=== PATIENT | female | born 1965 | race African-American/Black ===

== ENCOUNTER 2016-03-29 15:27 | Emergency (ER) | payer OTHER ==
[2016-03-29] MEDS ORDERED: ASPIRIN PO STA (15:33)
[2016-03-29 15:53] LABS: MANUAL DIFF NEEDED? NO
--- NOTE | 2016-03-29 16:02 | ED EKG INTERP ---
EKG Interpretation - EKG Time of EKG reading by physician:: 15:35 EKG Read and Signed by:: Terence Rosenbaum EKG Interpretation (*Must complete 3 of following elements*): Abnormal (cannot rule out inferior infarct, age undetermined) Rate: 110 Rhythm: sinus tachycardia Comments: lateral infarct, age undetermined; Attestation - Scribe Verification/Attestation Scribe:: Edelmira Ng Acting as Scribe for:: Terence Rosenbaum Scribe documention review:: This chart was documented by a scribe and accurately reflects the service the provider performed and the decisions made by the provider.
[2016-03-29 16:21] LABS: INR 0.95 (0.86-1.15)
[2016-03-29 16:24] LABS: AGAP 10; ALBUMIN 3.8 g/dL (3.5-5.0); ALKALINE PHOSPHATASE 177 U/L (32-104); BUN 12 mg/dL (8-22); CALCIUM 9.3 mg/dL (8.8-10.2); CHLORIDE 102 mmol/L (98-107); CK PROFILE 124 U/L (24-173); COSMO 280; GOT 15 U/L (10-30); GPT 23 U/L (10-36); MAGNESIUM 1.8 mg/dL (1.5-2.7); POTASSIUM 3.7 mmol/L (3.5-5.1); SODIUM 138 mmol/L (136-145); TCO2 27 mmol/L (25-35); TOTAL PROTEIN 7.5 g/dL (6.3-8.3)
--- NOTE | 2016-03-29 16:37 | PROVIDER DOCUMENTATION ---
HPI-Chest Pain <MikefranciscoBernabe desai - Last Filed: 03/29/16 18:44> - General Source: patient - History of Present Illness-CP Location: reports: other (R side of chest) Chest Pain Radiation: reports: neck, back Quality of Pain: reports: pressure Severity in ED: mild Onset/Duration: this morning Timing: still present, intermittent Context/Activities at Onset: reports: light activity Modifying Factors: improves with: nothing Associated Symptoms: reports: back pain. denies: abdominal pain, dizziness, fever/chills, nausea, shortness of breath, vomiting Nitro Today/Relief: no nitro taken today Aspirin Treatment Today: 81 mg x 4, provided at home Similar Symptoms Previously?: No Recently Seen Here or By Another Healthcare Provider: No <Edelmira Ng - Last Filed: 03/30/16 07:59> - General Chief Complaint: Chest Pain Stated Complaint: CHEST PAIN Time Seen by Provider: 03/29/16 15:48 Allergies/Adverse Reactions: Patient Allergies Allergy/AdvReac Type Severity Reaction Status Date / Time No Known Allergies Allergy Verified 06/20/15 10:23 Home Medications: Aspirin [Aspirin EC] 81 mg PO DAILY 11/25/13 Furosemide 10 mg PO BID PRN 11/25/13 Insulin Aspart [Novolog Flexpen] 11/25/13 Insulin Glargine [Lantus] 60 units SUBQ QHS 11/25/13 Levothyroxine [Synthroid] 0.075 mg PO DAILY 11/25/13 Pregabalin [Lyrica] 200 mg PO BID 11/25/13 Promethazine [Phenergan] 25 mg PO PRN PRN 11/25/13 Ranitidine HCl 300 mg PO DAILY 11/25/13 Morphine Sulfate [Ms Contin] 60 mg PO PRN PRN 06/20/15 Morphine Ir 15 mg PO BID PRN 02/04/16 Sitagliptin Phosphate [Januvia] 25 mg PO DAILY 02/04/16 Hydrocodone/APAP 10 mg/325 mg [[place]-10] 10 mg 02/11/16 - History of Present Illness-CP Nature of Presenting Problem: Pt is 50 y/o F presents to the ED with R side chest pain. Pt states the pain radiates from her chest to her neck and back. 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 Pt states pain started this morning. (Edelmira Ng) Review of Systems - Adult - REVIEW OF SYSTEMS - ADULT Constitutional: denies: chills, fever Eyes: denies: blurred vision, double vision Ears, Nose, Mouth & Throat: denies: ear pain, nose pain, throat pain Cardiovascular: reports: chest pain, irregular heart rate (tachy). denies: heart murmur Respiratory: denies: cough, shortness of breath, wheezing Gastrointestinal: denies: abdominal pain, diarrhea, nausea, vomiting Genitourinary: denies: dysuria, hematuria Musculoskeletal: reports: back pain, neck pain. denies: joint pain Integumentary: denies: hives, itching Neurological: denies: dizziness/vertigo, headache/migraines Psychiatric: reports: no symptoms reported Endocrine: reports: no symptoms reported Hematologic/Lymphatic: reports: no symptoms reported Allergic/Immunologic: reports: no symptoms reported All Other Systems: Reviewed and Negative <Edelmira Ng - Last Filed: 03/30/16 07:59> Past History - Adult - PAST MEDICAL HISTORY-ADULT Review of Records: reports: Nursing Assessment Review, Medications Reviewed, Social history reviewed & non-contributory. Major Childhood Illnesses: reports: denies history Cardiovascular: reports: denies history Respiratory: reports: denies history Gastrointestinal: reports: denies history Obstetrical/Gynecological: reports: denies history Genitourinary: reports: denies history Musculoskeletal: reports: denies history Neurological: reports: other (diabetic neuropathy) Psychiatric: reports: anxiety Endocrine/Immune: reports: Diabetes, thyroid disorder Other Conditions: reports: denies history - PRIOR SURGERIES/PROCEDURES Surgical/Procedure History: reports: reviewed, not pertinent, back/neck - IMMUNIZATION STATUS Childhood Immunizations: See Nurse Assessment Flu Vaccine: See Nurse Assessment - FAMILY HISTORY Family History: reviewed, not pertinent - SOCIAL HISTORY Smoking: denies Substance Use: denies Living Situation: family <Edelmira Ng - Last Filed: 03/30/16 07:59> Physical Exam-General - PHYSICAL EXAM-ADULT Initial Vital Signs Reviewed: Yes - CONSTITUTIONAL General Appearance: appears well, alert, mild distress - EYES Eyes: PERRL/EOMI, pink conjunctivae - HEAD, EARS, NOSE, MOUTH & THROAT HENMT: normocephalic/atraumatic, moist mucous membranes, normal ENT inspection - NECK Neck: non-tender, full range of motion, normal inspection - RESPIRATORY Respiratory: chest non-tender, lungs clear, normal breath sounds, increased rate - CARDIOVASCULAR Cardiovascular: normal peripheral pulses, no edema, tachycardia - GASTROINTESTINAL (ABDOMEN) Abdominal Exam: normal bowel sounds, non tender, soft - LYMPHATIC Lymphatic: no adenopathy - MUSCULOSKELETAL Back Exam: normal inspection, no CVA tenderness, no vertebral tenderness Extremity: normal range of motion, non-tender, normal gait - SKIN Integumentary: normal color, normal turgor, warm/dry - NEUROLOGIC Neurologic: heating and ventilating tender II-XII nml as tested, grossly normal, no motor/sensory deficits - PSYCHIATRIC Psych/Mental Status: normal mood/affect, normal thought content, normal thought process, oriented x 3 <Edelmira Ng - Last Filed: 03/30/16 07:59> Progress <Bernabe Alvarado - Last Filed: 03/29/16 18:44> - XRAY 1 XRAY: Bilateral XRAY Study: Chest Impression: Abnormal (stable mild basilar fibrosis, L greater than R. no acute abnormality.) - CHANGE OF SHIFT REPORT (ED Provider) Report Given and Care Transferred to:: Dr. Montano Time of Transfer: 17:57 Items Pending: Labs, Other (EKG) <Edelmira Ng - Last Filed: 03/30/16 07:59> - PLAN OF CARE/RESULTS Progress/Plan/Lab Results: Laboratory Tests 03/29/16 03/29/16 03/29/16 15:43 15:43 15:43 WBC RBC Hgb Hct MCV MCH MCHC RDW Std Deviation Plt Count MPV Immature Gran % (Auto) Neut % (Auto) Lymph % (Auto) Caroline % (Auto) Eos % (Auto) Baso % (Auto) Immature Gran # (Auto) Neut # (Auto) Lymph # (Auto) Caroline # (Auto) Eos # (Auto) Baso # (Auto) PT INR APTT (Factor Assay) D-Dimer Sodium 138 Potassium 3.7 Chloride 102 Carbon Dioxide 27 Anion Gap 10 BUN 12 Creatinine 0.8 Estimated GFR/1.73 m2 > 60 BUN/Creatinine Ratio 15 Glucose 176 H Calculated Osmolality 280 Calcium 9.3 Magnesium 1.8 Total Bilirubin 0.40 AST 15 ALT 23 Alkaline Phosphatase 177 H Creatine Kinase 124 Troponin T < 0.010 Vls-V-Bikcpduzxts Pept 12 Total Protein 7.5 Albumin 3.8 Globulin 4.0 Albumin/Globulin Ratio 1.0 03/29/16 03/29/16 03/29/16 15:43 15:43 17:50 WBC 7.07 RBC 4.62 Hgb 12.4 Hct 37.5 MCV 81.2 MCH 26.8 L MCHC 33.1 RDW Std Deviation 14.2 Plt Count 217 MPV 11.4 H Immature Gran % (Auto) 0.1 Neut % (Auto) 39.7 L Lymph % (Auto) 51.3 H Caroline % (Auto) 7.6 Eos % (Auto) 1.0 Baso % (Auto) 0.3 Immature Gran # (Auto) 0.01 Neut # (Auto) 2.80 Lymph # (Auto) 3.63 H Caroline # (Auto) 0.54 Eos # (Auto) 0.07 Baso # (Auto) 0.02 PT 13.0 INR 0.95 APTT (Factor Assay) 28.0 D-Dimer 0.31 Sodium Potassium Chloride Carbon Dioxide Anion Gap BUN Creatinine Estimated GFR/1.73 m2 BUN/Creatinine Ratio Glucose Calculated Osmolality Calcium Magnesium Total Bilirubin AST ALT Alkaline Phosphatase Creatine Kinase 116 Troponin T Upm-D-Ezrhcvdpxat Pept Total Protein Albumin Globulin Albumin/Globulin Ratio 03/29/16 17:50 WBC RBC Hgb Hct MCV MCH MCHC RDW Std Deviation Plt Count MPV Immature Gran % (Auto) Neut % (Auto) Lymph % (Auto) Caroline % (Auto) Eos % (Auto) Baso % (Auto) Immature Gran # (Auto) Neut # (Auto) Lymph # (Auto) Caroline # (Auto) Eos # (Auto) Baso # (Auto) PT INR APTT (Factor Assay) D-Dimer Sodium Potassium Chloride Carbon Dioxide Anion Gap BUN Creatinine Estimated GFR/1.73 m2 BUN/Creatinine Ratio Glucose Calculated Osmolality Calcium Magnesium Total Bilirubin AST ALT Alkaline Phosphatase Creatine Kinase Troponin T < 0.010 Uzy-P-Vykmvcecvhg Pept Total Protein Albumin Globulin Albumin/Globulin Ratio Orders Category Date Time Status Cardiac Monitoring DIRECTED Care 03/29/16 15:34 Active Oxygen Therapy- ED Nursing DIRECTED Care 03/29/16 15:34 Active Saline Loc NOW Care 03/29/16 15:34 Active CHEST-2 VIEWS [RAD] Stat Exams 03/29/16 15:34 Draft CBC WITH ELECTRONIC DIFF [HEME] Stat Lab 03/29/16 15:43 Completed CK PROFILE [SP CHEM] Stat Lab 03/29/16 15:43 Completed CK PROFILE [SP CHEM] Stat Lab 03/29/16 17:50 Completed COMPREHENSIVE METABOLIC PANEL [CHEM] Stat Lab 03/29/16 15:43 [address] D-DIMER PL [COAG] Stat Lab 03/29/16 15:43 Completed MAGNESIUM [CHEM] Stat Lab 03/29/16 15:43 Completed PRO B-NATRIURETIC PEPTIDE Stat Lab 03/29/16 15:43 Completed PR[address]IME WITH INR PL [COAG] Stat Lab 03/29/16 15:[address] [COAG] Stat Lab 03/29/16 15:43 Completed TROPONIN T Stat Lab 03/29/16 15:43 Completed TROPONIN T Stat Lab 03/29/16 17:50 Completed Aspirin Med 03/29/16 15:33 Discontinued 325 mg PO STAT STA Lido/Flores Alk/Al&mg Hydrox [G.i. Cocktail] Med 03/29/16 16:46 Discontinued 30 ml PO NOW ONE EKG [EKG] Stat Ther 03/29/16 15:34 Ordered EKG [EKG] Stat Ther 03/29/16 17:21 Ordered Vital Signs Temp Pulse Resp BP Pulse Ox 03/29/16 15:38 98.4 F 109 H 22 152/106 96 No Known Allergies Allergy (Verified 06/20/15 10:23) Aspirin [Aspirin EC] 81 mg PO DAILY 11/25/13 Furosemide 10 mg PO BID PRN 11/25/13 Insulin Aspart [Novolog Flexpen] 11/25/13 Insulin Glargine [Lantus] 60 units SUBQ QHS 11/25/13 Levothyroxine [Synthroid] 0.075 mg PO DAILY 11/25/13 Pregabalin [Lyrica] 200 mg PO BID 11/25/13 Promethazine [Phenergan] 25 mg PO PRN PRN 11/25/13 Ranitidine HCl 300 mg PO DAILY 11/25/13 Methocarbamol [Robaxin-750] 750 mg PO TID PRN PRN #30 tablet 06/20/15 Morphine Sulfate [Ms Contin] 60 mg PO PRN PRN 06/20/15 Naproxen 500 mg PO BID AC #30 tablet 06/20/15 Morphine Ir 15 mg PO BID PRN 02/04/16 Pregabalin [Lyrica] 200 mg PO BID #60 capsule 02/04/16 Sitagliptin Phos/Metformin HCl [Janumet Xr 100-1,000 mg Tablet] 1 each PO QAM # 30 tbmp.24hr 02/04/16 Sitagliptin Phosphate [Januvia] 25 mg PO DAILY 02/04/16 Hydrocodone/APAP 10 mg/325 mg [[place]-10] 10 mg 02/11/16 Laboratory 03/29/16 03/29/16 03/29/16 17:50 17:50 15:43 WBC RBC Hgb Hct MCV MCH MCHC RDW Std Deviation Plt Count MPV Immature Gran % (Auto) Neut % (Auto) Lymph % (Auto) Caroline % (Auto) Eos % (Auto) Baso % (Auto) Immature Gran # (Auto) Neut # (Auto) Lymph # (Auto) Caroline # (Auto) Eos # (Auto) Baso # (Auto) PT 13.0 INR 0.95 APTT (Factor Assay) 28.0 D-Dimer 0.31 Sodium Potassium Chloride Carbon Dioxide Anion Gap BUN Creatinine Estimated GFR/1.73 m2 BUN/Creatinine Ratio Glucose Calculated Osmolality Calcium Magnesium Total Bilirubin AST ALT Alkaline Phosphatase Creatine Kinase 116 Troponin T < 0.010 Yvx-Z-Ycbuapnrvxv Pept Total Protein Albumin Globulin Albumin/Globulin Ratio 03/29/16 03/29/16 03/29/16 15:43 15:43 15:43 WBC 7.07 RBC 4.62 Hgb 12.4 Hct 37.5 MCV 81.2 MCH 26.8 L MCHC 33.1 RDW Std Deviation 14.2 Plt Count 217 MPV 11.4 H Immature Gran % (Auto) 0.1 Neut % (Auto) 39.7 L Lymph % (Auto) 51.3 H Caroline % (Auto) 7.6 Eos % (Auto) 1.0 Baso % (Auto) 0.3 Immature Gran # (Auto) 0.01 Neut # (Auto) 2.80 Lymph # (Auto) 3.63 H Caroline # (Auto) 0.54 Eos # (Auto) 0.07 Baso # (Auto) 0.02 PT INR APTT (Factor Assay) D-Dimer Sodium Potassium Chloride Carbon Dioxide Anion Gap BUN Creatinine Estimated GFR/1.73 m2 BUN/Creatinine Ratio Glucose Calculated Osmolality Calcium Magnesium Total Bilirubin AST ALT Alkaline Phosphatase Creatine Kinase Troponin T < 0.010 Vfd-T-Pamzgxgwzfm Pept 12 Total Protein Albumin Globulin Albumin/Globulin Ratio 03/29/16 15:43 WBC RBC Hgb Hct MCV MCH MCHC RDW Std Deviation Plt Count MPV Immature Gran % (Auto) Neut % (Auto) Lymph % (Auto) Caroline % (Auto) Eos % (Auto) Baso % (Auto) Immature Gran # (Auto) Neut # (Auto) Lymph # (Auto) Caroline # (Auto) Eos # (Auto) Baso # (Auto) PT INR APTT (Factor Assay) D-Dimer Sodium 138 Potassium 3.7 Chloride 102 Carbon Dioxide 27 Anion Gap 10 BUN 12 Creatinine 0.8 Estimated GFR/1.73 m2 > 60 BUN/Creatinine Ratio 15 Glucose 176 H Calculated Osmolality 280 Calcium 9.3 Magnesium 1.8 Total Bilirubin 0.40 AST 15 ALT 23 Alkaline Phosphatase 177 H Creatine Kinase 124 Troponin T Keu-W-Gtlxpyqwbyf Pept Total Protein 7.5 Albumin 3.8 Globulin 4.0 Albumin/Globulin Ratio 1.0 (Bernabe Alvarado) Laboratory Tests 03/29/16 03/29/16 03/29/16 15:43 15:43 15:43 PT INR APTT (Factor Assay) D-Dimer Sodium 138 Potassium 3.7 Chloride 102 Carbon Dioxide 27 Anion Gap 10 BUN 12 Creatinine 0.8 Estimated GFR/1.73 m2 > 60 BUN/Creatinine Ratio 15 Glucose 176 H Calculated Osmolality 280 Calcium 9.3 Magnesium 1.8 Total Bilirubin 0.40 AST 15 ALT 23 Alkaline Phosphatase 177 H Creatine Kinase 124 Troponin T < 0.010 Hyh-T-Dmgfganlnko Pept 12 Total Protein 7.5 Albumin 3.8 Globulin 4.0 Albumin/Globulin Ratio 1.0 03/29/16 15:43 PT 13.0 INR 0.95 APTT (Factor Assay) 28.0 D-Dimer 0.31 Sodium Potassium Chloride Carbon Dioxide Anion Gap BUN Creatinine Estimated GFR/1.73 m2 BUN/Creatinine Ratio Glucose Calculated Osmolality Calcium Magnesium Total Bilirubin AST ALT Alkaline Phosphatase Creatine Kinase Troponin T Xpl-N-Vaaohdjfqyi Pept Total Protein Albumin Globulin Albumin/Globulin Ratio Orders Category Date Time Status Cardiac Monitoring DIRECTED Care 03/29/16 15:34 Active Oxygen Therapy- ED Nursing DIRECTED Care 03/29/16 15:34 Active Saline Loc NOW Care 03/29/16 15:34 Active CHEST-2 VIEWS [RAD] Stat Exams 03/29/16 15:34 Taken CBC WITH ELECTRONIC DIFF [HEME] Stat Lab 03/29/16 15:43 Results CK PROFILE [SP CHEM] Stat Lab 03/29/16 15:43 Completed COMPREHENSIVE METABOLIC PANEL [CHEM] Stat Lab 03/29/16 15:43 Com[address] D-DIMER PL [COAG] Stat Lab 03/29/16 15:43 Completed MAGNESIUM [CHEM] Stat Lab 03/29/16 15:43 Completed PRO B-NATRIURETIC PEPTIDE Stat Lab 03/29/16 15:[address] Com[address]IME WITH INR PL [COAG] Stat Lab 03/29/16 15:[address] [COAG] Stat Lab 03/29/16 15:43 Completed TROPONIN T Stat Lab 03/29/16 15:43 Completed Aspirin Med 03/29/16 15:33 Discontinued 325 mg PO STAT STA Lido/Flores Alk/Al&mg Hydrox [G.i. Cocktail] Med 03/29/16 16:46 Discontinued 30 ml PO NOW ONE EKG [EKG] Stat Ther 03/29/16 15:34 Ordered Vital Signs - 24 hr 03/29/16 15:38 Temperature 98.4 F Pulse Rate 109 H Respiratory 22 Rate Blood Pressure 152/106 O2 Sat by Pulse 96 Oximetry Laboratory Tests 03/29/16 03/29/16 03/29/16 15:43 15:43 15:43 PT INR APTT (Factor Assay) D-Dimer Sodium 138 Potassium 3.7 Chloride 102 Carbon Dioxide 27 Anion Gap 10 BUN 12 Creatinine 0.8 Estimated GFR/1.73 m2 > 60 BUN/Creatinine Ratio 15 Glucose 176 H Calculated Osmolality 280 Calcium 9.3 Magnesium 1.8 Total Bilirubin 0.40 AST 15 ALT 23 Alkaline Phosphatase 177 H Creatine Kinase 124 Troponin T < 0.010 Fgm-C-Fxanaignxqp Pept 12 Total Protein 7.5 Albumin 3.8 Globulin 4.0 Albumin/Globulin Ratio 1.0 03/29/16 15:43 PT 13.0 INR 0.95 APTT (Factor Assay) 28.0 D-Dimer 0.31 Sodium Potassium Chloride Carbon Dioxide Anion Gap BUN Creatinine Estimated GFR/1.73 m2 BUN/Creatinine Ratio Glucose Calculated Osmolality Calcium Magnesium Total Bilirubin AST ALT Alkaline Phosphatase Creatine Kinase Troponin T Khn-J-Ftecmcvwkcv Pept Total Protein Albumin Globulin Albumin/Globulin Ratio Laboratory Tests 03/29/16 03/29/16 03/29/16 15:43 15:43 15:43 WBC RBC Hgb Hct MCV MCH MCHC RDW Std Deviation Plt Count MPV Immature Gran % (Auto) Neut % (Auto) Lymph % (Auto) Caroline % (Auto) Eos % (Auto) Baso % (Auto) Immature Gran # (Auto) Neut # (Auto) Lymph # (Auto) Caroline # (Auto) Eos # (Auto) Baso # (Auto) PT INR APTT (Factor Assay) D-Dimer Sodium 138 Potassium 3.7 Chloride 102 Carbon Dioxide 27 Anion Gap 10 BUN 12 Creatinine 0.8 Estimated GFR/1.73 m2 > 60 BUN/Creatinine Ratio 15 Glucose 176 H Calculated Osmolality 280 Calcium 9.3 Magnesium 1.8 Total Bilirubin 0.40 AST 15 ALT 23 Alkaline Phosphatase 177 H Creatine Kinase 124 Troponin T < 0.010 Jll-F-Lyigwindmpu Pept 12 Total Protein 7.5 Albumin 3.8 Globulin 4.0 Albumin/Globulin Ratio 1.0 03/29/16 03/29/16 15:43 15:43 WBC 7.07 RBC 4.62 Hgb 12.4 Hct 37.5 MCV 81.2 MCH 26.8 L MCHC 33.1 RDW Std Deviation 14.2 Plt Count 217 MPV 11.4 H Immature Gran % (Auto) 0.1 Neut % (Auto) 39.7 L Lymph % (Auto) 51.3 H Caroline % (Auto) 7.6 Eos % (Auto) 1.0 Baso % (Auto) 0.3 Immature Gran # (Auto) 0.01 Neut # (Auto) 2.80 Lymph # (Auto) 3.63 H Caroline # (Auto) 0.54 Eos # (Auto) 0.07 Baso # (Auto) 0.02 PT 13.0 INR 0.95 APTT (Factor Assay) 28.0 D-Dimer 0.31 Sodium Potassium Chloride Carbon Dioxide Anion Gap BUN Creatinine Estimated GFR/1.73 m2 BUN/Creatinine Ratio Glucose Calculated Osmolality Calcium Magnesium Total Bilirubin AST ALT Alkaline Phosphatase Creatine Kinase Troponin T Lfj-Y-Lkrwwjlobzc Pept Total Protein Albumin Globulin Albumin/Globulin Ratio (Edelmira Ng) Departure - Departure Time of Disposition Order: 18:45 Certified Medical Emergency: Emergent <Bernabe Alvarado - Last Filed: 03/29/16 18:44> - Departure Time of Disposition Order: 19:10 <Edelmira Ng - Last Filed: 03/30/16 07:59> - Departure DIAGNOSIS: Non-cardiac chest pain Disposition: HOME 01 Condition: Stable Additional Instructions: ED Follow Up Instructions: You have been treated by a care provider in the Emergency Department. These instructions are being provided to you so you can have an understanding of how to care for yourself upon discharge. Upon discharge from the Emergency Department, you are responsible for making arrangements for follow-up care by a physician of your choice. Take all prescribed medications as directed. Return to the Emergency Department immediately for any new or worsening symptoms. You may call the Physician Referral phone number at [phone] to obtain a list of Physicians who are taking new patients. Prescriptions: Omeprazole [Prilosec] 20 mg PO DAILY #30 capsule Referrals: Lizbeth Hill CRNP [Primary Care Provider] - Forms: Return to School/Parent Work Instructions: Chest Wall Pain, Oovq-np-Bsqv, Omeprazole capsules (sprinkle caps ) - Rx Attestation - Scribe Verification/Attestation Scribe:: Edelmira Ng Acting as Scribe for:: Terence Rosenbaum Scribe documention review:: This chart was documented by a scribe and accurately reflects the service the provider performed and the decisions made by the provider. - Scribe Verification/Attestation #2 Shift Change Time: 17:57 Scribe Name: Bernabe Alvarado Acting as Scribe for:: Johnny Mnotano <Edelmira Ng - Last Filed: 03/30/16 07:59> Physician Attestation
[2016-03-29] MEDS ORDERED: G.I. COCKTAIL PO ONE (16:46)
--- NOTE | 2016-03-29 17:01 | Diag Imaging Result Document ---
PROCEDURE NAME: CHEST-2 VIEWS - 03/29/2016 CHEST, 2 VIEWS: INDICATION: Chest pain. COMPARISON: 06/20/2015. FINDINGS: The cardiomediastinal silhouette is within normal limits. The pulmonary vasculature is not congested. There is slight increased bibasilar lung markings left greater than right are again demonstrated and compatible with fibrosis. No acute abnormalities are appreciated. No effusion or pneumothorax. There are postsurgical changes left shoulder. IMPRESSION: Stable mild basilar fibrosis, left greater than right. No acute abnormality.
[2016-03-29 17:17] LABS: BASO% 0.3 % (0.0-0.8); EOS# 0.07 X1000 (0.0-0.7); HEMATOCRIT 37.5 % (37.0-47.0); HEMOGLOBIN 12.4 g/dL (12.0-16.0); IMM GRAN# 0.01 X1000 (0.0-0.04); IMM GRAN% 0.1 % (0.0-0.5); LYMPH# 3.63 X1000 (1.2-3.4); LYMPH% 51.3 % (20.5-51.1); MCH 26.8 PG (27-31); MCHC 33.1 g/dL (33-37); MCV 81.2 FL (81-99); MONO# 0.54 X1000 (0.11-0.59); MONO% 7.6 % (1.7-9.3); MPV 11.4 FL (7.4-10.4); NEUT% 39.7 % (42.2-75.2); PLT 217 X1000 (130-400); RBC 4.62 XMIL (4.2-5.4)
[2016-03-29] MEDS ORDERED: PRILOSEC PO ONE (18:44)
[2016-03-29 19:11] VITALS: BP 145/96
--- NOTE | 2016-03-29 19:30 | EKG Report ---
Test Performed on : 03/29/2016 3:35:57 PM Test Reason : repeat Blood Pressure : / mmHG Vent. Rate : 110 BPM Atrial Rate : 110 BPM P-R Int : 156 ms QRS Dur : 066 ms QT Int : 306 ms P-R-T Axes : 000 126 182 degrees QTc Int : 414 ms Sinus tachycardia. Lateral infarct , age undetermined Cannot rule out Inferior infarct , age undetermined Abnormal ECG When compared with ECG of 20-JUN-2015 10:24, QRS axis shifted right Minimal criteria for Inferior infarct are now present T wave inversion now evident in Lateral leads Unconfirmed Result
== END 2016-03-29 19:10 | disposition home or self-care (01) ==
LOC: P.ED 15:27
DX: R07.89 Other chest pain (principal); R94.31 Abnormal electrocardiogram [ECG] [EKG]; M54.9 Dorsalgia, unspecified; M54.2 Cervicalgia; R00.0 Tachycardia, unspecified; E11.9 Type 2 diabetes mellitus without complications; E07.9 Disorder of thyroid, unspecified; Z79.82 Long term (current) use of aspirin; Z79.899 Other long term (current) drug therapy; Z79.4 Long term (current) use of insulin
CPT/HCPCS: 71020; 80053; 82550; 83735; 83880; 84484; 85025; 85379; 85610; 85730; 93005; 99284